=== PATIENT | male | born 1980 | race Two or more races ===

== ENCOUNTER → 2016-09-20 | Day surgery (SDC) | payer OTHER ==
--- NOTE | 2016-09-21 16:38 | PATH ---
Cytology Non-Gynecological Report Patient Name: АЛЕКСАНДР OCHOA [facility]. Rec. #: [id number] /Age/Gender: 1980 (Age: 36) / M Account: [id number] Location: RADIOLOGY Taken: 09/20/2016 Received: 09/20/2016 Reported: 09/21/2016 Physicians: Oswaldo Galdamez M.D. Specimen(s) Received RIGHT THYROID FNA Clinical History Right thyroid nodule, 2.41 x 1.46 x 2.70 cm Final Diagnosis THYROID GLAND, RIGHT LOBE, US GUIDED FINE NEEDLE ASPIRATION BIOPSY: SATISFACTORY FOR EVALUATION. NO MALIGNANT CELLS IDENTIFIED. CONSISTENT WITH NODULAR GOITER (BENIGN FOLLICULAR NODULE, BETHESDA CATEGORY II, BENIGN), SEE COMMENT. Comment: The smears and the cell block show scattered clusters of bland appearing follicular epithelial cells with many cells showing Hurthle cell (oncocytic) change. Colloid is present. Electronically Signed David Porras M.D. Gross Description Received are four air dried smears, four smears in 95% alcohol, and 20 cc of bloody fluid in formalin. Four diff-quik stained slides, four Pap stained slides and one cell block are made.
== END | disposition home or self-care (01) ==
LOC: JRADIR 09:46
PROVIDERS: ATTEND Internal Medicine Endocrinology, Diabetes & Metabolism
PROC: 0G9H3ZX Drainage of Right Thyroid Gland Lobe, Percutaneous Approach, Diagnostic (ICD-10-PCS; principal; 2016-09-20)
PROC: BG44ZZZ Ultrasonography of Thyroid Gland (ICD-10-PCS; 2016-09-20)
DX: E04.1 Nontoxic single thyroid nodule (principal)
CPT/HCPCS: 76942; 88173; 88305-TC

== ENCOUNTER 2019-09-21 22:23 | Emergency (ER) | payer OTHER ==
[2019-09-21 22:26] VITALS: BP 111/69; PULSE 61; TEMP 98.5; BMI 24.7
[2019-09-21] MEDS ORDERED: ACETAMINOPHEN 500 MG TABLET (FP) PO ONE (22:26)
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
[2019-09-21] MEDS ORDERED: ACETAMINOPHEN 325 MG TABLET (FP) ONE (23:06)
[2019-09-21] MEDS ORDERED: KETOROLAC TROMETHAMINE 30 MG/1 ML VIAL IVPUSH ONE (23:27)
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
[2019-09-21] MEDS ORDERED: KETOROLAC TROMETHAMINE 15 MG/ML VIAL ONE (23:58)
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
== END 2019-09-22 01:52 | disposition home or self-care (01) ==
LOC: JER 22:23
PROC: 3E0333Z Introduction of Anti-inflammatory into Peripheral Vein, Percutaneous Approach (ICD-10-PCS; principal; 2019-09-21)
DX: S52.501A Unspecified fracture of the lower end of right radius, initial encounter for closed fracture (principal)
CPT/HCPCS: 73110-TC-LT-FY; 73130-TC-LT-FY; 99284-25

== ENCOUNTER 2019-10-01 15:12 | Day surgery (SDC) | payer OTHER ==
[2019-09-26 15:58] VITALS: BMI 25.1
[~2019-10-01 15:12] MED LIST: LACTATED RINGERS SOLUTION 1,000 ML IV SCH; ONDANSETRON 4 MG/2 ML VIAL IVPUSH PRN; oxyCODONE HCL 5 MG TABLET PO PRN
[2019-10-01] MEDS ORDERED: MIDAZOLAM HCL 2 MG/2 ML SINGLE DOSE VIAL ONE ×2 (15:50→18:38)
[2019-10-01] MEDS ORDERED: ROPIVACAINE HCL 0.5% 30ML VIAL ONE (15:51)
[2019-10-01] MEDS ORDERED: DEXAMETHASONE SOD PHOSPHATE/PF 10 MG/ML SDV ONE (15:56)
[2019-10-01] MEDS ORDERED: BUPIVACAINE HCL/PF 0.25% (2.5MG/ML) 10 ML VIAL ONE (18:49)
[2019-10-01] MEDS ORDERED: ceFAZolin SODIUM 1 GM VIAL ONE (19:00)
[2019-10-01] MEDS ORDERED: PROPOFOL 20 ML ONE (19:36)
--- NOTE | 2019-10-01 20:49 | OP ---
DATE OF OPERATION: 10/01/2019 PREOPERATIVE DIAGNOSIS: Right comminuted intraarticular displaced distal radius fracture. POSTOPERATIVE DIAGNOSIS: Right comminuted intraarticular displaced distal radius fracture. OPERATIVE PROCEDURE: 1. Open reduction, internal fixation right comminuted intraarticular displaced distal radius fracture, internal fixation of 3 or more fragments. 2. Right brachioradialis tenotomy. SURGEON: Abdulaziz San MD. SWITCHBOARD MANAGER: MANOLO Gerard. ANESTHESIA: Regional anesthesia. COMPLICATIONS: None. ESTIMATED BLOOD LOSS: Minimal. INDICATION FOR PROCEDURE: The patient is a 39-year-old male with the above findings, indicated for operative treatment. Risks, benefits, and alternatives were discussed with the patient at length. Proper informed consent was obtained. DESCRIPTION OF PROCEDURE: After proper identification of the patient and correct operative site, patient was brought to the operating room and placed supine on the operating room table, all bony prominences well padded. Regional anesthesia had been given. Right upper extremity was prepped and draped in the usual sterile fashion. Intravenous antibiotics were given. Timeout was performed. Esmarch bandage to exsanguinate the left upper extremity. Tourniquet inflated to 250 mmHg. Longitudinal incision made over the volar aspect of the wrist in line with the flexor carpi radialis tendon. Incision was taken sharply through skin, and bluntly through the subcutaneous tissue. carpal canal were gently and bluntly retracted in an ulnarward direction for the remainder of the procedure. Pronator quadratus was divided longitudinally and elevated off the distal radius. The fracture was very dorsally displaced, and a brachioradialis tenotomy in a subperiosteal fashion was necessary to release the radial styloid fragment in order to be reduced. Once this was performed, the fracture was visibly reduced, and it was held with an Arthrex distal radius locking plate with distal locking screws and possible nonlocking screws. This provided secure stable satisfactory fixation confirmed visually as well as radiographically in multiple planes. found to be stable. Wound was irrigated with normal saline and repaired in layers including the pronator quadratus with 4-0 Vicryl, 4-0 Monocryl sutures. Sterile dressings were applied. Splint was placed. Patient was awoken from anesthesia and brought to the recovery room in stable condition. He tolerated the procedure well. ABDULAZIZ SAN M.D. JULES/[id number]
[2019-10-01 20:51] VITALS: TEMP 97.5
[2019-10-01 23:17] VITALS: BP 124/69; PULSE 73
== END 2019-10-01 22:00 | disposition home or self-care (01) ==
LOC: FASU 15:12
PROVIDERS: ATTEND Orthopaedic Surgery Hand Surgery
PROC: 0LN50ZZ Release Right Lower Arm and Wrist Tendon, Open Approach (ICD-10-PCS; 2019-10-01)
PROC: 0PSH04Z Reposition Right Radius with Internal Fixation Device, Open Approach (ICD-10-PCS; principal; 2019-10-01 19:15)
DX: S52.501A Unspecified fracture of the lower end of right radius, initial encounter for closed fracture (principal); X58.XXXA Exposure to other specified factors, initial encounter; Y93.9 Activity, unspecified; Y92.9 Unspecified place or not applicable
CPT/HCPCS: 25290; 25609; C1713; 73110-TC-RT-FY; 94760

== ENCOUNTER 2022-05-19 20:43 | Emergency (ER) | payer OTHER ==
[2022-05-19 20:57] VITALS: BP 120/71; PULSE 75; RESP 18; TEMP 98; BMI 25.7
[2022-05-19] MEDS ORDERED: ACETAMINOPHEN 1000 MG/100 ML BAG IVPB ONE (21:26)
[2022-05-19] MEDS ORDERED: FAMOTIDINE 20 MG/50 ML IVPB 20 MG/50 ML MG IVPB ONE ×2 (21:28→21:47)
[2022-05-19] MEDS ORDERED: MAG HYDROX/AL HYDROX/SIMETH 30 ML UNIT-DOSE CUP PO ONE (21:28)
[2022-05-19] MEDS ORDERED: ACETAMINOPHEN INJECTION 100 ML IVPB ONE (21:47)
[2022-05-19] MEDS ORDERED: MAG HYDROX/AL HYDROX/SIMETH 30 ML UNIT-DOSE CUP ONE (21:47)
[2022-05-19] MEDS ORDERED: PANTOPRAZOLE SODIUM 40 MG VIAL IVPUSH ONE (22:05)
[2022-05-19 22:11] LABS: BASO % 0.4 % (0-2.0); EOS % 2.1 % (0-4.5); HEMOGLOBIN 14.4 GM/dL (11.7-16.9); LYMPH % 27.9 % (8-40); MCH 28.6 pg (25.7-33.7); MCHC 33.4 g/dl (32.0-35.9); MEAN CELL VOLUME 85.5 fl (80-96); MEAN PLT VOLUME 6.4 fl (7.5-11.1); MONO % 9.6 % (3.8-10.2); PLATELET COUNT 333 10^3/uL (134-434); RBC 5.03 M/mm3 (4.00-5.60); RDW 13.7 % (11.9-15.9); WHITE BLOOD COUNT 6.5 K/mm3 (4.0-10.0)
[2022-05-19] MEDS ORDERED: PANTOPRAZOLE SODIUM 40 MG VIAL ONE (22:40)
[2022-05-19] MEDS ORDERED: PANTOPRAZOLE SODIUM 40 MG/100 ML BAG IVPB ONE (22:40)
[2022-05-19 22:48] LABS: CALCIUM 8.6 mg/dL (8.5-10.1)
[2022-05-19 22:49] LABS: ALBUMIN 3.4 g/dl (3.4-5.0); BLOOD UREA NITROGEN 19.2 mg/dL (7-18)
[2022-05-19 22:52] LABS: CREATININE 1.1 mg/dL (0.55-1.3)
[2022-05-19 22:53] LABS: TOT PROT 6.4 g/dl (6.4-8.2)
[2022-05-19 22:54] LABS: BILIRUBIN,TOTAL 0.5 mg/dL (0.2-1)
== END 2022-05-20 00:57 | disposition home or self-care (01) ==
LOC: JER 20:43
PROC: 3E033GC Introduction of Other Therapeutic Substance into Peripheral Vein, Percutaneous Approach (ICD-10-PCS; principal; 2022-05-19)
PROC: 3E033NZ Introduction of Analgesics, Hypnotics, Sedatives into Peripheral Vein, Percutaneous Approach (ICD-10-PCS; 2022-05-19)
PROC: 3E033GC Introduction of Other Therapeutic Substance into Peripheral Vein, Percutaneous Approach (ICD-10-PCS; 2022-05-19)
DX: R10.31 Right lower quadrant pain (principal); Z20.822 Contact with and (suspected) exposure to COVID-19
CPT/HCPCS: 0241U-QW; 36415; 76705-TC; 80053; 82272; 83690; 85025; 86850; 86900; 86901; 87045; 87046; 99284-25

== ENCOUNTER 2023-01-09 16:30 | Emergency (ER) | payer OTHER ==
[2023-01-09 16:43] VITALS: BP 116/73; PULSE 85; RESP 18; TEMP 97.8; BMI 27.2
[2023-01-09] MEDS ORDERED: BACITRACIN ZINC 15 GM TUBE TOPICAL OINTMENT TP ONE (17:24)
[2023-01-09] MEDS ORDERED: CEPHALEXIN MONOHYDRATE 500 MG CAPSULE (UD) PO ONE (17:26)
[2023-01-09] MEDS ORDERED: CEPHALEXIN MONOHYDRATE 500 MG CAPSULE (UD) ONE (17:27)
[2023-01-09] MEDS ORDERED: BACITRACIN ZINC 15 GM TUBE TOPICAL OINTMENT ONE (17:27)
== END 2023-01-09 18:08 | disposition home or self-care (01) ==
LOC: JER 16:30 → JERFT 16:30
DX: S50.01XA Contusion of right elbow, initial encounter (principal); M79.89 Other specified soft tissue disorders; W01.0XXA Fall on same level from slipping, tripping and stumbling without subsequent striking against object, initial encounter; Y93.89 Activity, other specified; Y92.9 Unspecified place or not applicable
CPT/HCPCS: 73070-TC-RT-FY; 99283-25